=== PATIENT | male | born 1970 | race Two or more races ===

== ENCOUNTER 2019-12-24 16:44 | Outpatient (CLI) | payer OTHER | END 2019-12-24 16:56 | disposition home or self-care (01) | LOC: RAD 16:44 | DX: M79.672 Pain in left foot (principal) ==

== ENCOUNTER 2021-03-22 07:28 | Outpatient (CLI) | payer OTHER | END 2021-03-22 07:35 | disposition home or self-care (01) | LOC: MRI 07:28 | PROVIDERS: ATTEND Orthopaedic Surgery | DX: M48.07 Spinal stenosis, lumbosacral region (principal); R91.1 Solitary pulmonary nodule | CPT/HCPCS: 72141; 72148; 73721 ==